=== PATIENT | female | born 1995 | race Caucasian/White ===

== ENCOUNTER → 2022-05-16 14:39 | Outpatient (CLI) | payer OTHER, SELFPAY ==
[2022-05-16 15:14] LABS: Appearance Urine UA CLOUDY; Bilirubin Urine UA NEGATIVE (NEGATIVE); Color Urine UA YELLOW; Glucose Urine UA NEGATIVE (Negative); Ketones Urine UA NEGATIVE (NEGATIVE); Leukocyte Esterase Urine UA NEGATIVE (NEGATIVE); Nitrite Urine UA NEGATIVE (Negative); Occult Blood Urine UA NEGATIVE (Negative); Protein Urine UA NEGATIVE (Negative); Urobilinogen Urine UA 0.2 E.U./dL (0.2)
[2022-05-16 15:16] LABS: pH Urine UA 7.5 (4.5-8.0)
== END ==
PROVIDERS: Visit Provider Family Medicine
DX: Z34.01 Encounter for supervision of normal first pregnancy, first trimester (principal)
CPT/HCPCS: 81003; 87086

== ENCOUNTER → 2022-05-19 12:03 | Outpatient (CLI) | payer OTHER, SELFPAY ==
[2022-05-19 12:34] LABS: Add Manual Diff / Slide Review NO; Basophils Absolute Auto 0 /uL (0-100); Basophils Percent Auto 0.5 % (0-2); Eosinophils Absolute Auto 0 /uL (0-450); Eosinophils Percent Auto 0.5 % (2-4); Hemoglobin 13.5 g/dL (12.0-16.0); Lymphocytes Absolute Auto 1500 /uL (1100-4500); Lymphocytes Percent Auto 16.3 % (25-40); Mean Corpuscular HGB Conc 34.7 % (30-36); Mean Corpuscular Volume 92.2 fL (80-100); Monocytes Absolute Auto 600 /uL (0-900); Monocytes Percent Auto 6.2 % (3-14); Neutrophils Absolute Auto 7200 /uL (1500-7000); Neutrophils Percent Auto 76.5 % (50-75); Platelet Count 311 X10^3/uL (150-400); Red Blood Cell Count 4.23 X10^6/uL (4.0-5.2); Red Cell Distribution Width 13.1 % (11.6-14.8); White Blood Cell Count 9.5 X10^3/uL (4.5-11.0)
[2022-05-20 11:27] LABS: RPR Screen Non Reactive (Non Reactive)
[2022-05-20 12:08] LABS: Varicella IgG Antibody 571 index (Immune >165)
[2022-05-21 14:05] LABS: Hepatitis B Surface Antigen NEGATIVE s/c (NEGATIVE); Rubella Antibody IgG 12.9 IU/mL (>15)
[2022-05-21 14:25] LABS: HIV 1 & 2 Ab/Ag 4th Gen Combo NEGATIVE (NEGATIVE); Hep C Virus Ab w/Reflex Quant NEGATIVE s/c (NEGATIVE)
== END ==
PROVIDERS: Referring Provider Family Medicine; Visit Provider Family Medicine
DX: Z34.01 Encounter for supervision of normal first pregnancy, first trimester (principal)
CPT/HCPCS: 36415; 80055; 86787; 86803; 86850; 86900; 86901; 87086; 87389

== ENCOUNTER → 2022-05-24 11:11 | Outpatient (CLI) | payer OTHER, SELFPAY ==
[2022-05-24 12:19] LABS: Appearance Urine UA SL CLOUDY; Bilirubin Urine UA NEGATIVE (NEGATIVE); Color Urine UA YELLOW; Glucose Urine UA NEGATIVE (Negative); Ketones Urine UA NEGATIVE (NEGATIVE); Leukocyte Esterase Urine UA NEGATIVE (NEGATIVE); Nitrite Urine UA NEGATIVE (Negative); Occult Blood Urine UA NEGATIVE (Negative); Protein Urine UA NEGATIVE (Negative); Urobilinogen Urine UA 0.2 E.U./dL (0.2)
[2022-05-24 12:24] LABS: Amorphous Sediment Urine 1+; Bacteria Urine None Seen; Culture Indicated Urine Cult Not Indicated; RBC Urine None Seen (0-5/HPF); WBC Urine None Seen (0-5/HPF)
== END ==
PROVIDERS: Referring Provider Family Medicine; Visit Provider Family Medicine
DX: R30.0 Dysuria (principal)
CPT/HCPCS: 81001

== ENCOUNTER → 2022-07-24 11:25 | Outpatient (CLI) | payer OTHER, SELFPAY ==
[2022-07-26 20:07] LABS: AFP, Serum 49.5 ng/mL (.); Calc Gestational Age EDD (.); Estriol, Free 0.68 ng/mL (.); Inhibin A, Dimeric 256.81 pg/mL (.); Inhibin A, MoM 1.51 (.); Maternal Ethnicity Caucasian (.); Maternal Weight 128 lbs (.); Number of Fetuses No (.); OSBR Risk 1 IN 6110 (.); Results Report (.); Test Results *Screen Negative* (.); hCG, MoM 1.51 (.); hCG, Serum 65342 mIU/mL (.)
== END ==
PROVIDERS: Referring Provider Family Medicine; Visit Provider Family Medicine
DX: Z34.02 Encounter for supervision of normal first pregnancy, second trimester (principal); Z3A.16 16 weeks gestation of pregnancy
CPT/HCPCS: 36415; 82105; 82677; 84702; 86336

== ENCOUNTER → 2022-08-21 14:49 | Outpatient (CLI) | payer OTHER, SELFPAY ==
--- NOTE | 2022-08-21 14:50 | DI.US.S_ITS ---
PROCEDURE: US OB >= 14 WEEKS FETUS INDICATIONS: ANATOMY OUTSIDE/PRIOR DATING DATA: Last menstrual period (LMP): 03/29/2022. LMP-based estimated date of delivery (JAYDA): 01/02/2023. First dating scan (date and location): 05/16/2022. Estimated date of delivery (JAYDA) from first dating scan: 01/05/2023. TECHNIQUE: Real-time scanning was performed of the fetus, with image documentation and biometric measurements. Endovaginal scanning: Not performed COMPARISON: None. FINDINGS: General: A single living intrauterine gestation is present. Presentation: Vertex. Placenta: Placental position is right posterior , without previa. Amniotic fluid index: 15.2 cm, normal range is 5-24 cm. Single deepest vertical pocket is 4.9 cm. heart rate: 152 beats per minute. Maternal cervical canal: 3.5 cm long. Normal lower limit is 2.5 cm. biometrics: Biparietal diameter: 4.9 cm 20 weeks 5 days Head circumference: 17.1 cm 19 weeks 5 days Abdominal circumference: 15.3 cm 20 weeks 4 days Femur length: 3.3 cm 19 weeks 1 day estimated gestational age: 20 weeks 3 days Composite gestational age from present scan: 20 weeks 2 days Estimated weight and percentile: 347 g, 40th percentile Anatomic survey: Neuro: Ventricles are non-dilated at less than 10 mm. Cisterna magna is normal at 3-11 mm. Cerebellum is normal in size and morphology. Nuchal skin fold: Normal at less than 6 mm between 14-21 weeks gestational age. Face: Nose and lips, facial profile are normal. Spine: No evidence for spina bifida. Heart: 4-chambered heart is present, with normal ventricular outflow tracts. Diaphragm: Diaphragm is intact. Stomach: Left-sided stomach is present. Kidneys: Left pelviectasis, AP renal pelvis diameter 4 mm. No right pelviectasis identified. Cord: 3-vessel cord has orthotopic insertion. Bladder: Normal in size. Extremities: All 4 extremities identified. IMPRESSION: 1. Single living intrauterine . 2. Left pelviectasis. Follow-up third-trimester ultrasound at approximately 32 weeks is recommended. 3. The remainder of the 2nd trimester anatomy survey is within normal limits. We strive to produce accurate, complete, and clear reports of imaging services. To assist us in improving patient care, this report was composed using standard report templates and voice recognition software. Therefore, it may contain abnormal punctuation, insertions and/or omissions. Occasional wrong-word or sound-alike substitutions may occur. Though we review the report and make efforts to correct it, we do recommend that the report be read carefully in proper context to recognize any text inaccuracies. Dictated by: Justino Gilman M.D. on 08/22/2022 at 9:09 Approved by: Justino Gilman M.D. on 08/22/2022 at 9:21
== END ==
PROVIDERS: Referring Provider Family Medicine; Visit Provider Family Medicine
DX: Z34.02 Encounter for supervision of normal first pregnancy, second trimester (principal); Z3A.20 20 weeks gestation of pregnancy
CPT/HCPCS: 76811

== ENCOUNTER → 2022-10-02 09:22 | Outpatient (CLI) | payer OTHER, SELFPAY ==
[2022-10-02 11:55] LABS: Add Manual Diff / Slide Review NO; Basophils Absolute Auto 100 /uL (0-100); Basophils Percent Auto 0.5 % (0-2); Eosinophils Absolute Auto 200 /uL (0-450); Hematocrit 32.2 % (36-46); Lymphocytes Absolute Auto 1600 /uL (1100-4500); Lymphocytes Percent Auto 13.2 % (25-40); Mean Corpuscular HGB Conc 34.2 % (30-36); Mean Corpuscular Hemoglobin 32.1 PG (26-34); Mean Corpuscular Volume 93.8 fL (80-100); Monocytes Absolute Auto 600 /uL (0-900); Monocytes Percent Auto 5.1 % (3-14); Neutrophils Absolute Auto 9400 /uL (1500-7000); Neutrophils Percent Auto 79.2 % (50-75); Platelet Count 218 X10^3/uL (150-400); Red Blood Cell Count 3.43 X10^6/uL (4.0-5.2); White Blood Cell Count 11.9 X10^3/uL (4.5-11.0)
[2022-10-02 13:08] LABS: GTT (PREG) 1 Hour PP 50gm Dose 144 mg/dL (76-139)
== END ==
PROVIDERS: Referring Provider Family Medicine; Visit Provider Family Medicine
DX: Z34.02 Encounter for supervision of normal first pregnancy, second trimester (principal); Z3A.26 26 weeks gestation of pregnancy
CPT/HCPCS: 36415; 82950; 85025

== ENCOUNTER → 2022-10-18 08:00 | Outpatient (CLI) | payer OTHER, SELFPAY ==
[2022-10-18 10:37] LABS: Glucose 1 Hour Gest 155 mg/dL (76-180)
[2022-10-18 11:37] LABS: Glucose Tol Interp,Gestational INTERPRETATION
[2022-10-18 11:38] LABS: Glucose 2 Hour Gest 187 mg/dL (76-155)
[2022-10-18 13:02] LABS: Glucose 3 Hour Gest 119 mg/dL (76-140)
[2022-10-18 16:30] LABS: Glucose Fasting Gestational 82 mg/dL (76-95)
== END ==
PROVIDERS: Referring Provider Family Medicine; Visit Provider Family Medicine
DX: Z34.01 Encounter for supervision of normal first pregnancy, first trimester (principal); R73.9 Hyperglycemia, unspecified
CPT/HCPCS: 36415; 82951; 82952

== ENCOUNTER → 2022-11-22 08:45 | Outpatient (CLI) | payer OTHER, SELFPAY ==
--- NOTE | 2022-11-22 08:45 | DI.US.S_ITS ---
PROCEDURE: US OB FOLLOW UP INDICATIONS: FOLLOW UP LEFT KIDNEY OUTSIDE/PRIOR DATING DATA: Last menstrual period (LMP): 03/29/2022. LMP-based estimated date of delivery (JAYDA): 01/02/2023. First dating scan (date and location): 05/17/2023. Estimated date of delivery (JAYDA) from first dating scan: 01/05/2023. The calculations are made using the sonographic JAYDA of 01/05/2023. TECHNIQUE: Real-time scanning was performed of the fetus, with image documentation. Endovaginal scanning: Mild performed COMPARISON: [facility], US, US OB >= 14 WEEKS FETUS, 08/21/2022, 15:10. FINDINGS: A single living intrauterine gestation is present. Presentation: Vertex. Placenta: Placental position is posterior right, without previa. There is hypoechoic, nonmobile, avascular signal deep to the placenta. The placenta edge appears firmly adhere to the uterus wall. Amniotic fluid index: 11.8 cm, normal range is 5-24 cm. Single deepest vertical pocket is 4.4 cm. heart rate: 122 beats per minute. Maternal cervical canal: 4.2 cm long. Normal lower limit is 2.5 cm. Other: The left renal pelvis measures 4.4 millimeters, previously 4.2 millimeters. IMPRESSION: Similar borderline pelvocaliectasis of the left kidney, with the left renal pelvis measuring 4.4 millimeters, unchanged from prior. A vascular, hypoechoic signal deep to the placenta. The placenta edge is firmly adhered to the uterus. In the absence of symptoms, findings likely represent a placental [place]. Placental abruption is significantly less likely in the absence of recent trauma, bleeding or abnormal amniotic fluid. Dictated by: Dm Mack M.D. on 11/22/2022 at 10:10 Approved by: Dm Mack M.D. on 11/22/2022 at 10:13
== END ==
PROVIDERS: Referring Provider Family Medicine; Visit Provider Family Medicine
DX: O35.EXX0 Maternal care for other (suspected) fetal abnormality and damage, fetal genitourinary anomalies, not applicable or unspecified (principal); Z3A.34 34 weeks gestation of pregnancy
CPT/HCPCS: 76816

== ENCOUNTER → 2022-12-11 12:24 | Outpatient (CLI) | payer OTHER, SELFPAY ==
[2022-12-12 13:14] LABS: Strep Grp B PCR NEG for Grp B Strep
== END ==
PROVIDERS: Visit Provider Family Medicine
DX: Z34.01 Encounter for supervision of normal first pregnancy, first trimester (principal)
CPT/HCPCS: 87653

== ENCOUNTER → 2022-12-18 08:10 | Outpatient (CLI) | payer OTHER, SELFPAY ==
--- NOTE | 2022-12-18 08:11 | DI.US.S_ITS ---
PROCEDURE: US OB LIMITED INDICATIONS: f/u kidney OUTSIDE/PRIOR DATING DATA: Last menstrual period (LMP): 03/29/2022 LMP-based estimated date of delivery (JAYDA): 01/02/2023 First dating scan (date and location): 05/16/2022 Estimated date of delivery (JAYDA) from first dating scan: 01/05/2023 The calculations are made using the ultrasound JAYDA of 01/05/2023 TECHNIQUE: Real-time scanning was performed of the fetus, with image documentation. Endovaginal scanning: Not performed. COMPARISON: [facility], US, OB FOLLOW UP, 11/22/2022, 9:04. FINDINGS: General: A single living intrauterine gestation is present. Presentation: Vertex Placenta: Placental position is posterior right, without previa. Amniotic fluid index: 11.1 cm, normal range is 5-24 cm. Single deepest vertical pocket is 3.9 cm. heart rate: 157 beats per minute. Maternal cervical canal: Not well visualized. Clinically estimated gestational age: 37 weeks 3 days Other: Left renal pelvis measures 6 mm in AP diameter and right renal pelvis measures 4 mm in AP diameter, which is within normal limits for gestational age. Stable heterogeneously hypoechoic avascular area along the deep margin of the placenta. IMPRESSION: 1. Single live intrauterine . 2. Left renal pelvis measures 6 mm and right renal pelvis measures 4 mm, which is within normal limits for gestational age. 3. Hypoechoic avascular area along the deep margin of the placenta does not appear significantly changed when compared to the prior ultrasound. We strive to produce accurate, complete, and clear reports of imaging services. To assist us in improving patient care, this report was composed using standard report templates and voice recognition software. Therefore, it may contain abnormal punctuation, insertions and/or omissions. Occasional wrong-word or sound-alike substitutions may occur. Though we review the report and make efforts to correct it, we do recommend that the report be read carefully in proper context to recognize any text inaccuracies. Approved by: Justino Rodriguez M.D. on 12/18/2022 at 14:18
== END ==
PROVIDERS: Referring Provider Family Medicine; Visit Provider Family Medicine
DX: Z34.01 Encounter for supervision of normal first pregnancy, first trimester (principal)
CPT/HCPCS: 76815

== ENCOUNTER 2022-12-26 01:25 | Inpatient (IN) | payer OTHER, SELFPAY ==
[2022-12-26 02:50] VITALS: BP 127/72
[2022-12-26 02:52] LABS: Add Manual Diff / Slide Review NO; Basophils Absolute Auto 100 /uL (0-100); Basophils Percent Auto 0.5 % (0-2); Eosinophils Absolute Auto 300 /uL (0-450); Eosinophils Percent Auto 1.8 % (2-4); Hematocrit 37.6 % (36-46); Hemoglobin 12.7 g/dL (12.0-16.0); Lymphocytes Absolute Auto 2300 /uL (1100-4500); Lymphocytes Percent Auto 14.8 % (25-40); Mean Corpuscular HGB Conc 33.9 % (30-36); Mean Corpuscular Hemoglobin 31.6 PG (26-34); Mean Corpuscular Volume 93.4 fL (80-100); Monocytes Absolute Auto 1000 /uL (0-900); Monocytes Percent Auto 6.4 % (3-14); Neutrophils Absolute Auto 12000 /uL (1500-7000); Neutrophils Percent Auto 76.5 % (50-75); Platelet Count 231 X10^3/uL (150-400); Red Blood Cell Count 4.02 X10^6/uL (4.0-5.2); Red Cell Distribution Width 13.5 % (11.6-14.8); White Blood Cell Count 15.7 X10^3/uL (4.5-11.0)
--- NOTE | 2022-12-26 03:48 | P.HPOB_ITS ---
OB HPI Date/Time Date of admission: 12/26/22 Date Patient Seen: 12/26/22 Time Patient Seen: 03:49 History of Present Condition Chief complaint: labor JYADA Calculator 2 Estimated Delivery Date Method Current WG Current Estimate 01/05/23 Ultrasound #1 38w 4d Other Estimates 01/02/23 LMP (Certain) 39w 0d Estimated Gestational Age (weeks): 38w4d : 1 Para: 0 Narrative: Pt is a 27yo at 38w4d here with regular contractions. Pt reports contractions starting after her appt yesterday, increasing in frequency and intensity significantly around 10pm. She denies any vaginal bleeding or LOF. She is feeling her baby move regularly. Her was complicated anxiety and depression, stable on Zoloft, and borderline left pelvocaliectasis which resolved prior to delivery. Due to a hx of congenital heart defect that self- resolved (uncertain of details), the pt had a echo that was reassuring. care: good care, initiated at week # (6) and pounds weight gain (34) Dating criteria OB: based on 1st trimester US only Ultrasounds: normal 1st trimester US and abnormal US findings Abnormal ultrasound findings: borderline left pelvocaliectasis Obstetrical complications: none Medical complications OB: psychiatric Preadmission Labs Last OB Lab Results: 2 Blood Type O Positive 12/26/22 02:10 Antibody Screen Negative 12/26/22 02:10 Hematocrit 37.6 % (36-46) 12/26/22 02:10 Hemoglobin 12.7 g/dL (12.0-16.0) 12/26/22 02:10 Hepatitis B Surface Antigen Negative s/c (NEGATIVE) 05/19/22 12 :11 Hepatitis C Antibody Negative s/c (NEGATIVE) 05/19/22 12:11 Rubella Antibody 12.9 IU/mL (>15) L 05/19/22 12:11 Varicella-Zoster IgG Antibody 571 index (Immune >165) 05/19/22 12:11 Glucose 1 Hour 144 mg/dL (76-139) H 10/02/22 10:40 Group B Streptococcus (PCR) Neg for grp b strep 12/11/22 12:24 Glucose Tolerance Testing: Fasting (82), 1 hr (155), 2 hr (187) and 3 hr (119) -: Urine: positive (Lactobacillus) Genetic Screens: Quad screen: Normal External Labs -: Urine: positive (Lactobacillus) Evaluation Evaluation Baseline heart rate: 130 Variability: Moderate (11-25) monitor accelerations: Present Monitor Decelerations: Absent Contraction Frequency (minutes): 3 Dilation (cm): 9 Effacement (%): 90 station: 0 Position of cervix: mid Consistency: soft PFSH Medical History (Updated 05/08/22 @ 08:37 by Paula Smallwood, RN) GI bleeding Normal colonoscopy Anorexia nervosa Anxiety Depression Congenital heart defect History of abnormal cervical Pap smear Surgical History (Updated 05/08/22 @ 08:37 by Paula Smallwood, RN) History of colposcopy with cervical biopsy (~2018) [place] teeth extracted History of removal of skin mole Family History (Updated 05/08/22 @ 08:42 by Paula Smallwood RN) Father Ulcerative colitis History of partial colectomy Skin cancer Family/Other Crohn's disease Grandmother Ovarian cancer Family/Other Apert syndrome Grandfather Hypertension Grandmother Skin cancer Breast cancer Grandfather Skin cancer Family/Other Breast cancer Grandfather Dementia Social History marital status: number of children: 0 household members: spouse lives independently: Yes caregiver/support person: No housing: house pets and animals: Yes (3 dogs, fish; aware of precautions) education level: college (some college) 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) current occupational exposures/hazards: Yes (discussed precautions w/ animal feces and cleaning chemicals) special chester needs: No travel history: recent (domestic only) seatbelt use: always water heater temp set < 120 deg: No (will adjust) working smoke detector in home: Yes fire extinguisher in home: Yes carbon monox detector in home: Yes firearms in home: Yes firearms unloaded and locked: Yes do you feel safe at home: Yes Smoking Status: Never smoker second hand exposure: No alcohol intake: former (rarely when not ) substance use type: marijuana (will not use when /) during the past year weight has: remained stable well-balanced diet: about half the time daily servings fruits/ve-4 caffeine: Yes Type(s) of exercise: walking (10+ miles/day) frequency: daily Meds Home Medications and Allergies Home Medications Medication Instructions Recorded Confirmed Type magnesium 250 mg tablet 250 mg PO DAILY 05/08/22 12/25/22 History prenat.vits,pete,bne-ocsp-jqqkm 1 tab PO DAILY 05/08/22 12/25/22 History sertraline 100 mg tablet (Zoloft) 100 mg PO DAILY 05/08/22 12/25/22 History Allergies Allergy/AdvReac Type Severity Reaction Status Date / Time No Known Drug Allergies Allergy Unverified 12/25/22 11:33 OB Exam Resp Effort & Inspection: normal respiratory effort Auscultation: clear to auscultation bilaterally Cardio Rate: regular rate Rhythm: regular rhythm Heart Sounds: S1 normal, S2 normal and no murmurs GI Inspection: non-distended Palpation: Yes soft and No tender Presentation: vertex Objective Labs 12/26/22 02:10 Labs: Laboratory Results - last 24 hr 12/26/22 02:10 WBC 15.7 H RBC 4.02 Hgb 12.7 Hct 37.6 MCV 93.4 MCH 31.6 MCHC 33.9 RDW 13.5 Plt Count 231 Neut % (Auto) 76.5 H Lymph % (Auto) 14.8 L [place] % (Auto) 6.4 Eos % (Auto) 1.8 L Baso % (Auto) 0.5 Neut # (Auto) 73366 H Lymph # (Auto) 2300 [place] # (Auto) 1000 H Eos # (Auto) 300 Baso # (Auto) 100 Blood Type O Positive Antibody Screen Negative Assessment and Plan Assessment and Plan Assessment and Plan narrative: 27yo at 38w4d here in active labor. GBS negative, Rh positive. After informed consent, AROM performed with clear fluid present. - Expectant management, anticipate - FHT reassuring - GBS negative, no prophylaxis indicated - Epidural in place for pain control
--- NOTE | 2022-12-26 03:54 | PM.AN.REGBLK ---
Regional Block Pre-procedure Procedure: Continuous Lumbar Epidural for L&D Attending OB provider: Yesica Hatch PMH/ROS narrative: 27F at 38w3d in labor for epidural. Hx congenital heart defect hole in heart that closed spontaneously, anxiety/depression and anorexia, asthma. Hx: No personal or family history of anesthesia problems. PSH/Anesthesia history narrative: Colposcopy, colonoscopy Exam narrative: See pre-anesthesia evaluation ASA Class: II Labs: Hct 37.6 % (36-46) 12/26/22 02:10 Plt Count 231 X10^3/uL (150-400) 12/26/22 02:10 Medications: Current Medications Generic Name Dose Route Start Last Admin Trade Name Freq PRN Reason Stop Dose Admin Calcium Carbonate 1,000 mg 12/26/22 02:07 Calcium Carbonate 500 Mg Tab PO Q4HR PRN Dyspepsia Carboprost Tromethamine 250 mcg 12/26/22 02:07 Carboprost 250 Mcg/Ml Ampul IM Q90M PRN Bleeding Fentanyl 50 mcg 12/26/22 02:07 Fentanyl 100 Mcg/2 Ml Inj IV Q1H PRN Pain, Moderate (4-6) Oxytocin/Lactated Ringer's 30 unit in 500 mls @ 200 mls/hr 12/26/22 02:07 Oxytocin Premix IV CONT PRN Bleeding Protocol Tranexamic Acid 1,000 mg/ 100 mls @ 200 mls/hr 12/26/22 02:07 Sodium Chloride IV NOW PRN Bleeding Lactated Ringer's 1,000 mls @ 100 mls/hr 12/26/22 02:15 Lactated Ringers IV CONT WES Lidocaine HCl 20 ml 12/26/22 02:07 Lidocaine 1% 20 Ml INJ INTRA-OP PRN Post Delivery Methylergonovine Maleate 0.2 mg 12/26/22 02:07 Methylergonovine 0.2 Mg Tablet PO Q6HR PRN Heavy Bleeding Methylergonovine Maleate 0.2 mg 12/26/22 02:07 Methylergonovine 0.2 Mg/Ml Vial IM NOW PRN Bleeding Misoprostol 800 mcg 12/26/22 02:07 Misoprostol 200 Mcg Tablet PA NOW PRN Bleeding Misoprostol 400 mcg 12/26/22 02:07 Misoprostol 200 Mcg Tablet SL NOW PRN Bleeding Naloxone HCl 0.2 mg 12/26/22 02:07 Naloxone 0.4 Mg/Ml Vial IV Q2MIN PRN Opiate Reversal Ondansetron HCl 4 mg 12/26/22 02:07 Ondansetron 4 Mg/2 Ml Inj IV Q4HR PRN Nausea And Vomiting Oxytocin 10 unit 12/26/22 02:07 Oxytocin 10 Unit/Ml Vial IM NOW PRN Bleeding Allergies: Allergies Allergy/AdvReac Type Severity Reaction Status Date / Time No Known Drug Allergies Allergy Unverified 12/25/22 11:33 Procedure Insertion date: 12/26/22 Insertion time: 03:21 Prep/Local: 1% lidocaine (Chlorhexidine) Interspace: L2-3 Patient position: sitting Needle: 17 gauge Tuohy Loss of resistance with: saline JORGE LUIS at (cm): 5 Catheter placed at SKIN (cm): 9 Catheter in SPACE (cm): 4 Insertion: No CSF, No Blood, No Paresthesia with insertion, No Paresthesia with injection and No Test dose reaction Initial Medications TEST DOSE time: 03:22 BOLUS DOSE time: 03:24 BOLUS DOSE (mL): 2 BOLUS DOSE med: other Infusion Initial rate (mL/hr): 10 Subsequent interventions: Repeat time-out prior to procedure about 03:16, local at 03:18. One attempt, L2-3, easy placement. Pt very stoic and tolerated procedure well. Post-procedure Anesthesia time START: 03:03 Anesthesia time END: 03:50 Post-procedure Anesthesia Assessment: Yes CV function: HR/BP stable, Yes Resp function: RR/sat/airway adequate, Yes Post-op hydration adequate, Yes Pain control adequate, Yes Nausea & vomiting absent, Yes Temperature > 36 C, Yes Mental status appropriate and Yes Anesthesia complications (None)
[2022-12-26] MEDS: FENT 2MCG/ML BUPIV 0.1% EPI 200 MCG/100 ML PLAST..BAG 6 MCG EPIDURAL (07:42)
[2022-12-26] MEDS: OXYTOCIN PREMIX 30 UNIT/500 ML PLAST..BAG 200 UNIT IV (09:18)
[2022-12-26] MEDS: TRANEXAMIC ACID 1,000 MG in SODIUM CHLORIDE 0.9% 100 ML 200 MG IV (09:41)
[2022-12-26] MEDS: miSOPROStoL 200 MCG TABLET 800 MCG PR (09:42)
--- NOTE | 2022-12-26 10:34 | P.PCNOB_ITS ---
Labor & Delivery Delivery date: 12/26/22 Intrapartal Events: None Cervical ripening method: none Induction method: none Delivery augmentation: rupture of membranes Delivery monitor: external FHT and external uterine Route of delivery: Episiotomy description: None L&D Laceration Description: Perineal - 2nd Degree Quantitative Blood Loss: 1,100 Anesthesia Type: Epidural Complications: hemorrhage Narrative: PROCEDURE: at 38w4d presented in active labor and was admitted to Labor and Delivery. The patient progressed through the 1st stage over 9 hours. ROM occured at 3:45 with clear fluid. Pain was controlled with an epidural. The patient progressed through the 2nd stage over 1 hours and delivered a viable female infant with APGARs 7/8 at 9:09 via . The cord was cut and clamped after it stopped pulsating. The placenta delivered with gentle cord traction, and appeared complete. The perineum and vagina were inspected with 2nd degree perineal laceration repaired with 2-O Vicryl. Heavier bleeding was noted after delivery. Bimanual exam produced two large clots. The pt received the usual pitocin in addition to TXA and cytotec, and her bleeding improved to normal volume. Needle and sponge counts were correct.? The vagina was inspected and no items were left in situ. Augusta was doing well with her and her , Moiz, at bedside. PREPROCEDURE DIAGNOSIS: Intrauterine at 38w4d Anxiety and depression GBS negative RH positive POSTPROCEDURE DIAGNOSIS: Intrauterine at 38w4d, delivered Same as preprocedure [place] Baby 1: gender: Female Presentation: vertex Position: Left Occiput Anterior Placenta delivery description: Spontaneous Cord Vessel Description: 3 Vessels score (1 min): 7 score (5 min): 8 weight: 6 lb 11.903 oz Plan for aftercare: Routine care
[2022-12-26] MEDS: IBUPROFEN 600 MG TABLET PO (13:29)
[2022-12-26] MEDS: ACETAMINOPHEN 325 MG TABLET 650 MG PO (13:29)
[2022-12-26 15:00] VITALS: BP 115/71; PULSE 85; RESP 16; TEMP 36.6
[2022-12-27] MEDS: IBUPROFEN 600 MG TABLET PO ×2 (04:03→10:21)
[2022-12-27] MEDS: ACETAMINOPHEN 325 MG TABLET 650 MG PO ×2 (04:03→10:20)
[2022-12-27 06:18] LABS: Add Manual Diff / Slide Review NO; Basophils Absolute Auto 100 /uL (0-100); Basophils Percent Auto 0.9 % (0-2); Eosinophils Absolute Auto 200 /uL (0-450); Eosinophils Percent Auto 1.8 % (2-4); Hematocrit 27.6 % (36-46); Hemoglobin 9.4 g/dL (12.0-16.0); Lymphocytes Absolute Auto 2100 /uL (1100-4500); Lymphocytes Percent Auto 17.6 % (25-40); Mean Corpuscular HGB Conc 34.2 % (30-36); Mean Corpuscular Hemoglobin 31.6 PG (26-34); Mean Corpuscular Volume 92.5 fL (80-100); Monocytes Absolute Auto 700 /uL (0-900); Monocytes Percent Auto 5.7 % (3-14); Neutrophils Absolute Auto 8900 /uL (1500-7000); Platelet Count 190 X10^3/uL (150-400); Red Blood Cell Count 2.99 X10^6/uL (4.0-5.2); Red Cell Distribution Width 13.8 % (11.6-14.8); White Blood Cell Count 12.1 X10^3/uL (4.5-11.0)
[2022-12-27] MEDS: PRENATAL VIT,CALC/IRON/FOLIC 1 TABLET 1 TAB PO (08:57)
[2022-12-27] MEDS: SERTRALINE 50 MG TABLET 100 MG PO (08:58)
[2022-12-27] MEDS: DOCUSATE 100 MG CAPSULE PO (09:03)
[2022-12-27] MEDS: FERROUS SULFATE 325 MG TABLET PO (09:03)
--- NOTE | 2022-12-27 10:02 | P.DS_ITS ---
Discharge Providers Provider Date of admission: 12/26/22 01:25 Discharge Date: 12/27/22 Primary care physician: Lashell MARQUES Provider Consults: 12/26/22 02:07 Consult to Anesthesiology Urgent Comment: Consulting Provider: Anesthesiologist Reason for consultation: Epidural 12/27/22 10:31 Consult to Continuous Mining Machine Operator Routine Comment: Discharge provider: Yesica Hatch MD Summary Hospital Course Date Patient Seen: 12/27/22 Diagnoses: Intrauterine at 38w4d Anxiety and depression GBS negative RH positive Spontaneous vaginal delivery hemorrhage Hospital Course: The pt presented in active labor. She had an epidural for pain control. AROM was performed with clear fluid present. She progressed to complete and had an of a viable baby girl on 12/26/22. A 2nd degree perineal laceration was then repaired. The pt had heavier vaginal bleeding due to uterine atony, which was controlled with TCA, pitocin, and cytotec. , there were no additional complications. At the time of discharge she was voiding, ambulating, and passing flatus without difficulty. Her lochia was decreasing appropriately. Her pain was well controlled. She was with good latch with the nipple shield. She will f/u in 6 weeks for check. She is undecided regarding contraception but does not desire hormones. Peripartum Data Delivery Method: Natural Vaginal Laceration Description: Perineal - 2nd Degree Procedures: Spontaneous vaginal delivery complications: none 1: Gender: Female Disposition of : home Discharge Diagnosis (1) Spontaneous vaginal delivery: Status: Acute Status at Discharge Cognitive/behavioral status at discharge: oriented Functional status at discharge: independent ambulation Overall status at discharge: patient is progressing back to baseline Time Spent with Patient Time attestation: Total time spent providing and/or coordinating discharge services: Objective Labs 12/27/22 06:00 Labs: Laboratory Results - last 24 hr 12/27/22 06:00 WBC 12.1 H RBC 2.99 L Hgb 9.4 L Hct 27.6 L MCV 92.5 MCH 31.6 MCHC 34.2 RDW 13.8 Plt Count 190 Neut % (Auto) 74.0 Lymph % (Auto) 17.6 L [place] % (Auto) 5.7 Eos % (Auto) 1.8 L Baso % (Auto) 0.9 Neut # (Auto) 8900 H Lymph # (Auto) 2100 [place] # (Auto) 700 Eos # (Auto) 200 Baso # (Auto) 100 Exam Narrative Exam Narrative: Gen: NAD, sitting comfortably in bed, appears well CV: RRR, no murmurs Resp: clear to auscultation bilaterally Abd: soft, appropriately tender, fundus firm and below the umbilicus, nondistended Ext: no edema Discharge Plan Discharge Plan Patient Disposition: Home Discharge orders & Medications Prescriptions: New acetaminophen 325 mg Tablet 650 mg PO Q6HR PRN (Reason: Pain, Mild (1-3)) Qty: 30 0RF ferrous sulfate 325 mg (65 mg iron) Tablet 325 mg PO DAILY Qty: 30 0RF docusate sodium 100 mg Capsule 100 mg PO DAILY Qty: 30 0RF ibuprofen 600 mg Tablet 600 mg PO Q6HR PRN (Reason: Pain, Mild (1-3)) Qty: 30 0RF Continued prenat.vits,pete,wgg-gnjs-qwbab Tablet 1 tab PO DAILY sertraline [Zoloft] 100 mg tablet 100 mg PO DAILY magnesium 250 mg tablet 250 mg PO DAILY Follow up/Referrals: ProviderLashell [Primary Care Provider] - Yesica Hatch MD [Physician] - 6 Weeks (Appointment with on Tuesday, February 06 at 10:00 AM) Diet/Activity/Treatments Diet: Diet as Tolerated and Regular Skin/Wound/Dressing Care Report to your healthcare provider any signs of infection, such as:: chills, fever, increased pain and unusual drainage Visit Report/Discharge Packet Instructions: DI for Labor and Delivery, Vaginal Stand Alone Forms: Patient Portal/API, Stroke Signs & Symptoms Discharge Data Primary Care Provider: ProviderLashell Discharges patient from system. Discharge Date/Time: 12/27/22 12:26
== END 2022-12-27 12:26 | disposition home or self-care (01) | DRG 807 ==
PROVIDERS: Family Medicine; Admitting Provider Student in an Organized Health Care Education/Training Program; Referring Provider Student in an Organized Health Care Education/Training Program; Visit Provider Student in an Organized Health Care Education/Training Program
DX: O99.344 Other mental disorders complicating childbirth (principal); Z37.0 Single live birth; F41.9 Anxiety disorder, unspecified; F32.A Depression, unspecified; O70.1 Second degree perineal laceration during delivery; Z3A.38 38 weeks gestation of pregnancy; Z67.40 Type O blood, Rh positive
CPT/HCPCS: 36415; 59050; 59400; 85025; 86850; 86900; 86901; G0379; J2590; S0191

== ENCOUNTER → 2023-01-11 11:04 | Outpatient (CLI) | payer OTHER, SELFPAY ==
[2023-01-11 12:26] LABS: Add Manual Diff / Slide Review NO; Basophils Absolute Auto 100 /uL (0-100); Basophils Percent Auto 1.8 % (0-2); Eosinophils Absolute Auto 300 /uL (0-450); Eosinophils Percent Auto 3.9 % (2-4); Hemoglobin 12.7 g/dL (12.0-16.0); Lymphocytes Absolute Auto 2200 /uL (1100-4500); Lymphocytes Percent Auto 33.9 % (25-40); Mean Corpuscular HGB Conc 34.4 % (30-36); Mean Corpuscular Hemoglobin 31.6 PG (26-34); Mean Corpuscular Volume 91.8 fL (80-100); Monocytes Absolute Auto 400 /uL (0-900); Monocytes Percent Auto 6.1 % (3-14); Neutrophils Absolute Auto 3600 /uL (1500-7000); Neutrophils Percent Auto 54.3 % (50-75); Platelet Count 408 X10^3/uL (150-400); Red Blood Cell Count 4.04 X10^6/uL (4.0-5.2); Red Cell Distribution Width 12.8 % (11.6-14.8); White Blood Cell Count 6.5 X10^3/uL (4.5-11.0)
[2023-01-11 12:48] LABS: Free T3, Triiodothyronine Free 3.31 pg/mL (2.77-5.27)
[2023-01-11 13:01] LABS: Thyroid Stimulating Hormone 2.38 uIU/mL (0.47-4.68)
== END ==
PROVIDERS: Referring Provider Family Medicine; Visit Provider Family Medicine
DX: O92.4 Hypogalactia (principal); D64.9 Anemia, unspecified
CPT/HCPCS: 36415; 84439; 84443; 84481; 85025

== ENCOUNTER → 2023-10-08 12:05 | Outpatient (CLI) | payer OTHER, SELFPAY ==
[2023-10-08 13:33] LABS: HCG Quantitative /Beta subunit < 2.39 mIU/mL
== END ==
PROVIDERS: Referring Provider Family Medicine; Visit Provider Family Medicine
DX: O03.9 Complete or unspecified spontaneous abortion without complication (principal)
CPT/HCPCS: 36415; 84702

== ENCOUNTER → 2024-01-23 09:56 | Outpatient (CLI) | payer OTHER, SELFPAY ==
[2024-01-23 10:20] LABS: Add Manual Diff / Slide Review NO; Basophils Absolute Auto 0 /uL (0-100); Basophils Percent Auto 0.5 % (0-2); Eosinophils Absolute Auto 100 /uL (0-450); Eosinophils Percent Auto 0.8 % (2-4); Hematocrit 37.5 % (36-46); Hemoglobin 12.7 g/dL (12.0-16.0); Lymphocytes Absolute Auto 1300 /uL (1100-4500); Lymphocytes Percent Auto 13.8 % (25-40); Mean Corpuscular Hemoglobin 31.6 PG (26-34); Mean Corpuscular Volume 92.9 fL (80-100); Monocytes Absolute Auto 500 /uL (0-900); Monocytes Percent Auto 5.9 % (3-14); Neutrophils Absolute Auto 7300 /uL (1500-7000); Platelet Count 271 X10^3/uL (150-400); Red Blood Cell Count 4.03 X10^6/uL (4.0-5.2); Red Cell Distribution Width 14.7 % (11.6-14.8); White Blood Cell Count 9.2 X10^3/uL (4.5-11.0)
[2024-01-23 11:19] LABS: Appearance Urine UA CLOUDY; Bilirubin Urine UA NEGATIVE (NEGATIVE); Color Urine UA YELLOW; Glucose Urine UA NEGATIVE (Negative); Ketones Urine UA NEGATIVE (NEGATIVE); Leukocyte Esterase Urine UA NEGATIVE (NEGATIVE); Nitrite Urine UA NEGATIVE (Negative); Occult Blood Urine UA NEGATIVE (Negative); Protein Urine UA NEGATIVE (Negative); Specific Gravity Urine UA 1.025 (1.000-1.035); Urobilinogen Urine UA 0.2 E.U./dL (0.2)
[2024-01-23 11:20] LABS: pH Urine UA 6.5 (4.5-8.0)
[2024-01-23 14:59] LABS: Hepatitis B Surface Antigen NEGATIVE s/c (NEGATIVE); Rubella Antibody IgG 10.1 IU/mL (>15)
[2024-01-23 15:16] LABS: HIV 1 & 2 Ab/Ag 4th Gen Combo NEGATIVE (NEGATIVE); Hep C Virus Ab w/Reflex Quant NEGATIVE s/c (NEGATIVE)
[2024-01-24 04:37] LABS: RPR Screen Non Reactive (Non Reactive)
[2024-01-24 10:38] LABS: Varicella IgG Antibody Reactive (Non Reactive)
== END ==
PROVIDERS: Referring Provider Family Medicine; Visit Provider Family Medicine
DX: Z34.82 Encounter for supervision of other normal pregnancy, second trimester (principal); Z3A.14 14 weeks gestation of pregnancy
CPT/HCPCS: 36415; 80055; 81003; 86787; 86803; 86850; 86900; 86901; 87389

== ENCOUNTER → 2024-02-17 11:50 | Outpatient (CLI) | payer OTHER, SELFPAY | PROVIDERS: Referring Provider Family Medicine; Visit Provider Family Medicine | DX: Z34.80 Encounter for supervision of other normal pregnancy, unspecified trimester (principal) | CPT/HCPCS: 36415; 82105; 82677; 84702; 86336 ==

== ENCOUNTER → 2024-02-19 14:59 | Outpatient (CLI) | payer OTHER, SELFPAY ==
--- NOTE | 2024-02-19 15:00 | DI.US.S_ITS ---
PROCEDURE: US OB >= 14 WEEKS FETUS INDICATIONS: anatomy OUTSIDE/PRIOR DATING DATA: Last menstrual period (LMP): 10/20/2023. LMP-based estimated date of delivery (JAYDA): 07/16/2024. First dating scan (date and location): Not applicable. Estimated date of delivery (JAYDA) from first dating scan: Not applicable. The calculations are made using the clinical JAYDA of 07/16/2024. TECHNIQUE: Real-time scanning was performed of the fetus, with image documentation and biometric measurements. Endovaginal scanning: No COMPARISON: [facility], OB >= 14 WEEKS FETUS, 08/21/2022, 15:10. FINDINGS: General: A single living intrauterine gestation is present. Presentation: Evenly transverse. Placenta: Placental position is anterior. Placental edge is 4.7 mm from the internal os Amniotic fluid index: 13.8 cm, normal range is 5-24 cm. Single deepest vertical pocket is 4.4 cm. heart rate: 130 beats per minute. Maternal cervical canal: 5.5 cm long. Normal lower limit is 2.5 cm. biometrics: Biparietal diameter: 4.2 cm, 18 week 5 day Head circumference: 15.1 cm, 18 week 1 day Abdominal circumference: 13.1 cm, 18 week 4 day Femur length: 2.6 cm, 18 week 0 day Clinically estimated gestational age: 18 week 6 day Composite gestational age from present scan: 18 week 3 day Estimated weight and percentile: 232 g, 16 percentile Anatomic survey: Neuro: Ventricles are non-dilated at less than 10 mm. Cisterna magna is normal at 3-11 mm. Cerebellum is normal in size and morphology. Nuchal skin fold: Normal at less than 6 mm between 14-21 weeks gestational age. Face: Nose and lips, facial profile are normal. Spine: No evidence for spina bifida. Heart: 4-chambered heart is present, with normal ventricular outflow tracts. Diaphragm: Diaphragm is intact. Stomach: Left-sided stomach is present. Kidneys: No hydronephrosis. Normal is less than 5 mm in 2nd trimester, less than 7 mm in 3rd trimester. Cord: 3-vessel cord has orthotopic insertion. Bladder: Normal in size. Extremities: All 4 extremities identified. IMPRESSION: Single live intrauterine consistent with 18 week 3 day gestation from current ultrasound. Marginal placenta previa 4.7 mm from the internal os Approved by: Celio Christianson M.D. on 02/19/2024 at 17:32
== END ==
LOC: US 14:59
PROVIDERS: Referring Provider Family Medicine; Visit Provider Family Medicine
DX: Z34.82 Encounter for supervision of other normal pregnancy, second trimester (principal); Z3A.18 18 weeks gestation of pregnancy
CPT/HCPCS: 76811

== ENCOUNTER → 2024-04-03 13:57 | Outpatient (CLI) | payer OTHER, SELFPAY ==
--- NOTE | 2024-04-03 13:57 | DI.US.S_ITS ---
PROCEDURE: US OB FOLLOW UP INDICATIONS: FOLLOW UP PLACENTA PREVIA OUTSIDE/PRIOR DATING DATA: Last menstrual period (LMP): 10/10/2023. LMP-based estimated date of delivery (JAYDA): 07/16/2024. TECHNIQUE: Real-time scanning was performed of the fetus, with image documentation. Endovaginal scanning: Not performed COMPARISON: [facility], OB FOLLOW UP, 11/22/2022, 9:04. [facility], OB >= 14 WEEKS FETUS, 02/19/2024, 15:25. FINDINGS: A single living intrauterine gestation is present. Presentation: Transverse Placenta: Placental position is anterior, without previa. Inferior edge of the placenta is 2.6 cm from the internal cervical os. Amniotic fluid index: 17.8 cm, normal range is 5-24 cm. Single deepest vertical pocket is 6.3 cm. heart rate: 128 beats per minute. Maternal cervical canal: 5.8 cm long. Normal lower limit is 2.5 cm. Clinically estimated gestational age: 24 weeks 4 days IMPRESSION: Single live intrauterine consistent with 24 weeks and 4 days. No evidence of low-lying placenta or placenta previa. Dictated by: Joaquin Chawla M.D. on 04/04/2024 at 15:55 Approved by: Joaquin Chawla M.D. on 04/04/2024 at 15:57
== END ==
PROVIDERS: Referring Provider Family Medicine; Visit Provider Family Medicine
DX: O44.00 Complete placenta previa NOS or without hemorrhage, unspecified trimester (principal); Z3A.24 24 weeks gestation of pregnancy
CPT/HCPCS: 76816

== ENCOUNTER → 2024-04-17 11:22 | Outpatient (CLI) | payer OTHER, SELFPAY ==
[2024-04-17 14:48] LABS: Add Manual Diff / Slide Review NO; Basophils Absolute Auto 0 /uL (0-100); Basophils Percent Auto 0.4 % (0-2); Eosinophils Absolute Auto 200 /uL (0-450); Eosinophils Percent Auto 1.8 % (2-4); Hematocrit 32.9 % (36-46); Hemoglobin 11.3 g/dL (12.0-16.0); Lymphocytes Absolute Auto 1600 /uL (1100-4500); Lymphocytes Percent Auto 17.3 % (25-40); Mean Corpuscular HGB Conc 34.2 % (30-36); Mean Corpuscular Hemoglobin 32.4 PG (26-34); Mean Corpuscular Volume 94.6 fL (80-100); Monocytes Absolute Auto 600 /uL (0-900); Monocytes Percent Auto 6.3 % (3-14); Neutrophils Absolute Auto 7000 /uL (1500-7000); Neutrophils Percent Auto 74.2 % (50-75); Platelet Count 248 X10^3/uL (150-400); Red Blood Cell Count 3.48 X10^6/uL (4.0-5.2); Red Cell Distribution Width 13.3 % (11.6-14.8); White Blood Cell Count 9.5 X10^3/uL (4.5-11.0)
[2024-04-17 15:24] LABS: GTT (PREG) 1 Hour PP 50gm Dose 140 mg/dL (76-139)
== END ==
PROVIDERS: Referring Provider Family Medicine; Visit Provider Family Medicine
DX: Z34.80 Encounter for supervision of other normal pregnancy, unspecified trimester (principal)
CPT/HCPCS: 36415; 82950; 85025

== ENCOUNTER → 2024-04-29 09:47 | Outpatient (CLI) | payer OTHER, SELFPAY ==
[2024-04-29 11:06] LABS: Glucose Fasting Gestational 85 mg/dL (76-95)
[2024-04-29 12:21] LABS: Glucose 1 Hour Gest 207 mg/dL (76-180)
[2024-04-29 12:38] LABS: Glucose 2 Hour Gest 158 mg/dL (76-155)
[2024-04-29 13:04] LABS: Glucose Tol Interp,Gestational INTERPRETATION
[2024-04-29 13:34] LABS: Glucose 3 Hour Gest 150 mg/dL (76-140)
== END ==
LOC: LAB 09:48
PROVIDERS: Referring Provider Family Medicine; Visit Provider Family Medicine
DX: O99.810 Abnormal glucose complicating pregnancy (principal)
CPT/HCPCS: 36415; 82951; 82952

== ENCOUNTER → 2024-06-22 11:14 | Outpatient (CLI) | payer OTHER, SELFPAY ==
[2024-06-23 10:59] LABS: Strep Grp B PCR NEG for Grp B Strep
== END ==
PROVIDERS: Referring Provider Family Medicine; Visit Provider Family Medicine
DX: Z34.80 Encounter for supervision of other normal pregnancy, unspecified trimester (principal)
CPT/HCPCS: 87653

== ENCOUNTER 2024-06-22 11:21 | Outpatient (CLI) | payer OTHER, SELFPAY ==
--- NOTE | 2024-06-22 12:16 | PM.OBTRLD ---
Visit Information Visit Information Date of evaluation: 06/22/24 Primary OB Provider: Yesica Hatch Comments/Additional reasons for admission: 29yo at 36w4d here for NST for borderline bradycardia in clinic. She is feeling baby moving regularly. [facility] Medical History (Updated 06/22/24 @ 12:20 by Yesica Hatch MD) Spontaneous vaginal delivery GI bleeding Normal colonoscopy Anorexia nervosa Anxiety Congenital heart defect History of abnormal cervical Pap smear Surgical History (Updated 11/20/23 @ 11:50 by Tess Mcdowell, RN) History of colposcopy with cervical biopsy (~2018) [place] teeth extracted History of removal of skin mole Family History (Updated 11/20/23 @ 11:54 by Tess Mcdowell, RN) Father Ulcerative colitis History of partial colectomy Skin cancer Family/Other Crohn's disease Grandmother Ovarian cancer Family/Other Apert syndrome Grandfather Hypertension Grandmother Skin cancer Breast cancer Grandfather Skin cancer Family/Other Breast cancer Grandfather Dementia Social History marital status: details: : Moiz number of children: 1 household members: spouse and children lives independently: Yes caregiver/support person: Yes housing: house pets and animals: Yes (3 dogs, fish; aware of precautions) education level: college (some college) occupational status: unemployed current occupational exposures/hazards: No (discussed precautions w/ animal feces and cleaning chemicals) special chester needs: No travel history: other (denies) seatbelt use: always water heater temp set < 120 deg: Yes (will adjust) working smoke detector in home: Yes fire extinguisher in home: No carbon monox detector in home: Yes firearms in home: Yes firearms unloaded and locked: Yes do you feel safe at home: Yes second hand exposure: No alcohol intake: former (rarely when not ) substance use type: marijuana (will not use when /) during the past year weight has: remained stable well-balanced diet: about half the time daily servings fruits/ve or more times/day caffeine: Yes (a cup of coffee daily ) eating out: rarely or never Type(s) of exercise: walking (10+ miles/day) and weight lifting frequency: daily duration: 45-60 minutes/day Evaluation Evaluation Baseline heart rate: 120 Variability: Moderate (11-25) monitor accelerations: Present Monitor Decelerations: Absent Category of Tracing: Reactive Diagnosis, Plan/Disposition Final Diagnosis (1) 36 weeks gestation of : Status: Acute (2) Encounter for supervision of other normal , unspecified trimester: Status: Acute Plan/Disposition Plan: 29yo at 36w4d here for NST for borderline bradycardia in clinic. NST reactive. Uterine irritability. Stable for d/c home. OB Disposition: home
== END 2024-06-22 12:13 | disposition home or self-care (01) ==
LOC: LABOR 11:36 → OB 15:01
PROVIDERS: Referring Provider Family Medicine; Visit Provider Family Medicine
DX: O36.8330 Maternal care for abnormalities of the fetal heart rate or rhythm, third trimester, not applicable or unspecified (principal); Z3A.36 36 weeks gestation of pregnancy
CPT/HCPCS: 59025; 87653; G0378; G0379

== ENCOUNTER 2024-06-24 10:32 | Outpatient (CLI) | payer OTHER, SELFPAY ==
--- NOTE | 2024-06-24 10:53 | P.TNLD_ITS ---
Visit Information Visit Information Date of evaluation: 06/24/24 Primary OB Provider: Yesica Hatch Comments/Additional reasons for admission: 29yo at 36w6d here for decreased movement. [facility] Medical History (Updated 06/22/24 @ 12:20 by Yesica Hatch MD) Spontaneous vaginal delivery GI bleeding Normal colonoscopy Anorexia nervosa Anxiety Congenital heart defect History of abnormal cervical Pap smear Surgical History (Updated 11/20/23 @ 11:50 by Tess Mcdowell, RN) History of colposcopy with cervical biopsy (~2018) [place] teeth extracted History of removal of skin mole Family History (Updated 11/20/23 @ 11:54 by Tess Mcdowell, RN) Father Ulcerative colitis History of partial colectomy Skin cancer Family/Other Crohn's disease Grandmother Ovarian cancer Family/Other Apert syndrome Grandfather Hypertension Grandmother Skin cancer Breast cancer Grandfather Skin cancer Family/Other Breast cancer Grandfather Dementia Social History marital status: details: : Moiz number of children: 1 household members: spouse and children lives independently: Yes caregiver/support person: Yes housing: house pets and animals: Yes (3 dogs, fish; aware of precautions) education level: college (some college) occupational status: unemployed current occupational exposures/hazards: No (discussed precautions w/ animal feces and cleaning chemicals) special chester needs: No travel history: other (denies) seatbelt use: always water heater temp set < 120 deg: Yes (will adjust) working smoke detector in home: Yes fire extinguisher in home: No carbon monox detector in home: Yes firearms in home: Yes firearms unloaded and locked: Yes do you feel safe at home: Yes second hand exposure: No alcohol intake: former (rarely when not ) substance use type: marijuana (will not use when /) during the past year weight has: remained stable well-balanced diet: about half the time daily servings fruits/ve or more times/day caffeine: Yes (a cup of coffee daily ) eating out: rarely or never Type(s) of exercise: walking (10+ miles/day) and weight lifting frequency: daily duration: 45-60 minutes/day Evaluation Evaluation Baseline heart rate: 130 Variability: Moderate (11-25) monitor accelerations: Present Monitor Decelerations: Absent Category of Tracing: Reactive Diagnosis, Plan/Disposition Plan/Disposition Plan: 29yo at 36w6d here for decreased movement. Pt now feeling baby move. Reactive NST. Stable for d/c home. OB Disposition: home
== END 2024-06-24 11:17 | disposition home or self-care (01) ==
LOC: LABOR 10:44 → OB 12:16
PROVIDERS: Referring Provider Family Medicine; Visit Provider Family Medicine
DX: O36.8130 Decreased fetal movements, third trimester, not applicable or unspecified (principal); Z3A.36 36 weeks gestation of pregnancy
CPT/HCPCS: 59025; G0378; G0379

== ENCOUNTER 2024-07-02 01:44 | Observation (INO) | payer OTHER, SELFPAY | END 2024-07-02 03:57 | disposition home or self-care (01) | LOC: LABOR 01:46 | PROVIDERS: Admitting Provider Obstetrics & Gynecology; Referring Provider Obstetrics & Gynecology; Visit Provider Obstetrics & Gynecology | DX: Z36.9 Encounter for antenatal screening, unspecified (principal) | CPT/HCPCS: 59025; 59050; G0378; G0379 ==

== ENCOUNTER 2024-07-06 03:00 | Inpatient (IN) | payer OTHER, SELFPAY ==
[2024-07-06] MEDS: LACTATED RINGERS 1,000 ML 999 ML IV ×3 (03:20→09:31)
--- NOTE | 2024-07-06 04:05 | P.HPOB_ITS ---
OB HPI Date/Time Date of admission: 07/06/24 Date Patient Seen: 07/06/24 Time Patient Seen: 04:05 History of Present Condition Chief complaint: labor JAYDA Calculator 2 Estimated Delivery Date Method Current WG Current Estimate 07/16/24 LMP (Uncertain) 38w 4d Other Estimates 07/18/24 Ultrasound #1 38w 2d Estimated Gestational Age (weeks): 38w4d : 2 Para: 1 Narrative: Pt is a 29yo at 38w4d here with regular contractions. Pt reports contractions starting last night more intensely, but she has been elisabeth for several days. Mild vaginal bleeding immediately prior to arrival. No LOF. She is feeling her baby move regularly. complicated by GDMA1 with excellent blood sugar control. Also anxiety/depression, stable on Zoloft. care: good care, initiated at week # (7) and pounds weight gain (31) Dating criteria OB: LMP confirmed by 1st trimester US Ultrasounds: normal 1st trimester US and normal mid trimester US Obstetrical complications: none Medical complications OB: none Preadmission Labs Last OB Lab Results: 2 Blood Type O Positive 07/06/24 03:20 Antibody Screen Negative 07/06/24 03:20 Hct 35.2 % (36-46) L 07/06/24 03:20 Hgb 12.3 g/dL (12.0-16.0) 07/06/24 03:20 Hep Bs Antigen Negative s/c (NEGATIVE) 01/23/24 10:00 Hepatitis C Antibody Negative s/c (NEGATIVE) 01/23/24 10:00 Rubella Antibody 10.1 IU/mL (>15) L 01/23/24 10:00 VZV IgG Antibody Reactive (Non Reactive) 01/23/24 10:00 Glucose 1 Hr 50 gm 140 mg/dL (76-139) H 04/17/24 11:49 Group B Strep (PCR) Neg for grp b strep 06/22/24 11:14 Glucose Tolerance Testing: Fasting (85), 1 hr (207), 2 hr (158) and 3 hr (150) -: Urine: positive (Lactobacillus) Genetic Screens: Quad screen: Normal External Labs -: Urine: positive (Lactobacillus) Prior (ies) Past Pregnancies Del. Date GA/Weeks Labor Lgth Wt Sex Route Outcome Anesthesia Place Delv Breastfeed Preg Comp Name 12/26/22 38 10 6 lb 12 oz Female vaginal live - full term e pidural IH 7 months, pumped other [place] Delivery Date: 12/26/22 Last Updated by: Tess Mcdowell RN epidural didn't work great. Had some heavier than normal bleeding that resolved with clot expression and TSA. Not classified as a hemmorhage Evaluation Evaluation Baseline heart rate: 120 Variability: Moderate (11-25) monitor accelerations: Present Monitor Decelerations: Absent Contraction Frequency (minutes): 2 Status: Category l Dilation (cm): 8 Effacement (%): 80 station: -3 Comments: AROM performed with cervical exam incidentally with thin meconium present. [facility] Medical History (Updated 06/29/24 @ 12:46 by Yesica Hatch MD) Spontaneous vaginal delivery GI bleeding Normal colonoscopy Anorexia nervosa Anxiety Congenital heart defect History of abnormal cervical Pap smear Surgical History (Updated 11/20/23 @ 11:50 by Tess Mcdowell, RN) History of colposcopy with cervical biopsy (~2017) [place] teeth extracted History of removal of skin mole Family History (Updated 11/20/23 @ 11:54 by Tess Mcdowell, RN) Father Ulcerative colitis History of partial colectomy Skin cancer Family/Other Crohn's disease Grandmother Ovarian cancer Family/Other Apert syndrome Grandfather Hypertension Grandmother Skin cancer Breast cancer Grandfather Skin cancer Family/Other Breast cancer Grandfather Dementia Social History marital status: details: : Moiz number of children: 1 household members: spouse and children lives independently: Yes caregiver/support person: Yes housing: house pets and animals: Yes (3 dogs, fish; aware of precautions) education level: college (some college) occupational status: unemployed current occupational exposures/hazards: No (discussed precautions w/ animal feces and cleaning chemicals) special chester needs: No travel history: other (denies) seatbelt use: always water heater temp set < 120 deg: Yes (will adjust) working smoke detector in home: Yes fire extinguisher in home: No carbon monox detector in home: Yes firearms in home: Yes firearms unloaded and locked: Yes do you feel safe at home: Yes second hand exposure: No alcohol intake: former (rarely when not ) substance use type: marijuana (will not use when /) during the past year weight has: remained stable well-balanced diet: about half the time daily servings fruits/ve or more times/day caffeine: Yes (a cup of coffee daily ) eating out: rarely or never Type(s) of exercise: walking (10+ miles/day) and weight lifting frequency: daily duration: 45-60 minutes/day Meds Home Medications and Allergies Home Medications Medication Instructions Recorded Confirmed Type magnesium 250 mg tablet 250 mg PO DAILY 05/08/22 07/06/24 History prenat.vits,pete,[id number] 1 tab PO DAILY 05/08/22 07/06/24 History sertraline 100 mg tablet (Zoloft) 100 mg PO DAILY 05/08/22 07/06/24 History blood sugar diagnostic (FreeStyle #100 05/01/24 07/06/24 Rx Test strips) blood-glucose meter (FreeStyle #1 ea 05/01/24 07/06/24 Rx Flash System kit) lancets 28 gauge (FreeStyle #100 05/01/24 07/06/24 Rx Lancets) Double Electric Breast Pump and #1 ea 06/15/24 07/06/24 Rx Supplies albuterol sulfate 90 mcg/actuation 2 puff inhalation DIRECTED 06/15/24 07/06/24 History aerosol inhaler Allergies Allergy/AdvReac Type Severity Reaction Status Date / Time No Known Drug Allergies Allergy Unverified 06/29/24 11:04 OB Exam Resp Effort & Inspection: normal respiratory effort Auscultation: clear to auscultation bilaterally Cardio Rate: regular rate Rhythm: regular rhythm Heart Sounds: S1 normal, S2 normal and no murmurs GI Inspection: non-distended Palpation: Yes soft and No tender Presentation: vertex Objective Labs 07/06/24 03:20 Assessment and Plan Assessment and Plan Assessment and Plan narrative: Pt is a 29yo at 38w4d here in active labor. GBS negative, Rh positive. - Expectant management, anticipate - FHT reassuring - GBS negative, no prophylaxis indicated - Epidural for pain control now Time-Based Coding :: [TOTAL MINUTES] spent with patient and on the chart (including review of chart, obtaining history, exam, reviewing outside data, placing orders, documenting exam and treatment plan, and counseling patient) on [DATE].
[2024-07-06 04:06] LABS: Add Manual Diff / Slide Review NO; Basophils Absolute Auto 100 /uL (0-100); Basophils Percent Auto 0.6 % (0-2); Eosinophils Absolute Auto 200 /uL (0-450); Eosinophils Percent Auto 2.4 % (2-4); Hematocrit 35.2 % (36-46); Hemoglobin 12.3 g/dL (12.0-16.0); Lymphocytes Absolute Auto 2400 /uL (1100-4500); Lymphocytes Percent Auto 23.1 % (25-40); Mean Corpuscular Hemoglobin 32.3 PG (26-34); Mean Corpuscular Volume 92.2 fL (80-100); Monocytes Absolute Auto 800 /uL (0-900); Monocytes Percent Auto 7.5 % (3-14); Neutrophils Absolute Auto 7000 /uL (1500-7000); Neutrophils Percent Auto 66.4 % (50-75); Platelet Count 201 X10^3/uL (150-400); Red Blood Cell Count 3.81 X10^6/uL (4.0-5.2); Red Cell Distribution Width 13.8 % (11.6-14.8); White Blood Cell Count 10.5 X10^3/uL (4.5-11.0)
[2024-07-06] MEDS: FENT 2MCG/ML BUPIV 0.125% EPI 200 MCG/100 ML PLAST..BAG 10 MCG EPIDURAL (04:11)
--- NOTE | 2024-07-06 04:40 | PM.AN.REGBLK ---
[facility] <Alexandrea Louise, JEWELL - Last Filed: 07/06/24 04:47> Pre-procedure Procedure: Continuous Lumbar Epidural for L&D Attending OB provider: Miranda Starks PMH/ROS narrative: , spontaneous labor, unruptured, 8cm requests epidural. Had epidural with previous delivery that was one-sided. ROS positive for asthma, GERD, depression, gestational diabetes, otherwise negative. PSH/Anesthesia history narrative: Negative Exam narrative: Mall 2, good dentition ASA Class: II Labs: Hct 35.2 % (36-46) L 07/06/24 03:20 Plt Count 201 X10^3/uL (150-400) 07/06/24 03:20 Medications: Current Medications Generic Name Dose Route Start Last Admin Trade Name Freq PRN Reason Stop Dose Admin Calcium Carbonate 1,000 mg 07/06/24 03:20 Calcium Carbonate 500 Mg Tab PO Q2HR PRN Dyspepsia Carboprost Tromethamine 250 mcg 07/06/24 03:20 Carboprost 250 Mcg/Ml Ampul IM Q90M PRN Bleeding Diphenhydramine HCl 25 mg 07/06/24 04:38 Diphenhydramine 50 Mg/Ml Vial IV Q10M PRN Pruritis Ephedrine Sulfate 10 mg 07/06/24 04:38 Ephedrine 50 Mg/Ml Vial IV Q5M PRN Blood pressure decrease more than 20% of baseline. Oxytocin/Lactated Ringer's 30 unit in 500 mls @ 200 mls/hr 07/06/24 03:20 Oxytocin Premix IV CONT PRN Bleeding Protocol Tranexamic Acid 1,000 mg/ 100 mls @ 600 mls/hr 07/06/24 03:20 Sodium Chloride IV NOW PRN Bleeding Lactated Ringer's 1,000 mls @ 100 mls/hr 07/06/24 03:30 07/06/24 04:09 Lactated Ringers IV 07/06/24 13:29 999 mls/hr CONT WES Administration FENT 2MCG/ML BUPIV 0.125% EPI 200 mcg in 100 mls @ 10 mls/hr 07/06/24 04:45 Fentanyl/Bupiv/Ns 2mcg/Ml - 0.125% EPIDURAL CONT WES Lidocaine HCl 20 ml 07/06/24 03:20 Lidocaine 1% 20 Ml INJ INTRA-OP PRN Post Delivery Methylergonovine Maleate 0.2 mg 07/06/24 03:20 Methylergonovine 0.2 Mg Tablet PO Q6HR PRN Heavy Bleeding Methylergonovine Maleate 0.2 mg 07/06/24 03:20 Methylergonovine 0.2 Mg/Ml Vial IM NOW PRN Bleeding Mineral Oil 30 ml 07/06/24 03:20 Mineral Oil 30 Ml Udc TOP PRN PRN Version Misoprostol 800 mcg 07/06/24 03:20 Misoprostol 200 Mcg Tablet UT NOW PRN Bleeding Misoprostol 400 mcg 07/06/24 03:20 Misoprostol 200 Mcg Tablet SL NOW PRN Bleeding Nalbuphine HCl 2.5 mg 07/06/24 04:38 Nalbuphine 20 Mg/Ml Ampul IV Q10M PRN Pruritis Naloxone HCl 0.2 mg 07/06/24 03:20 Naloxone 0.4 Mg/Ml Vial IV Q2MIN PRN Opiate Reversal Ondansetron HCl 4 mg 07/06/24 03:20 Ondansetron 4 Mg/2 Ml Inj IV Q4HR PRN Nausea And Vomiting Oxytocin 10 unit 07/06/24 03:20 Oxytocin 10 Unit/Ml Vial IM NOW PRN Bleeding Allergies: Allergies Allergy/AdvReac Type Severity Reaction Status Date / Time No Known Drug Allergies Allergy Unverified 06/29/24 11:04 Procedure Insertion date: 07/06/24 Insertion time: 04:00 Prep/Local: 1% lidocaine (chlorhex skin prep, dry x 3 min) Interspace: L4-5 Patient position: sitting Needle: 17 gauge Tuohy Loss of resistance with: saline JORGE LUIS at (cm): 7 Catheter placed at SKIN (cm): 13 Catheter in SPACE (cm): 6 Sensory level: T10 Insertion: No CSF, No Blood, No Paresthesia with insertion, No Paresthesia with injection and No Test dose reaction Initial Medications TEST DOSE time: 04:16 BOLUS DOSE time: 04:11 BOLUS DOSE (mL): 1 BOLUS DOSE med: other (introducer, 25G spinal ndl, Neg heme/pares, pos csf a/p injection of 1/3cc 0.75% bupiv, 2/3cc saline as separate procedure) Infusion INFUSION: 0.125% bupivacaine and with fentanyl 2 mcg/mL Initial rate (mL/hr): 10 Post-procedure Anesthesia date START: 07/06/24 Anesthesia time START: 04:00 <Jil Oquendo CRNA - Last Filed: 07/06/24 15:02> Post-procedure Anesthesia date END: 07/06/24 Anesthesia time END: 09:00 Post-procedure Anesthesia Assessment: Yes CV function: HR/BP stable, Yes Resp function: RR/sat/airway adequate, Yes Post-op hydration adequate, Yes Pain control adequate, Yes Nausea & vomiting absent, Yes Temperature > 36 C and Yes Mental status appropriate
[2024-07-06] MEDS: OXYTOCIN PREMIX 30 UNIT/500 ML PLAST..BAG 200 UNIT IV (08:50)
[2024-07-06] MEDS: LIDOCAINE 1% 20 ML INJ (08:57)
[2024-07-06] MEDS: TRANEXAMIC ACID 1,000 MG in SODIUM CHLORIDE 0.9% 100 ML 600 MG IV (09:17)
--- NOTE | 2024-07-06 09:54 | PM.OBPRVD ---
Labor & Delivery Delivery date: 07/06/24 Delivery Time: 08:46 Cervical ripening method: none Induction method: none Delivery augmentation: rupture of membranes Delivery monitor: external FHT and external uterine Route of delivery: Episiotomy description: None L&D Laceration Description: Perineal - 2nd Degree Quantitative Blood Loss: 100 Anesthesia Type: Epidural Complications: hemorrhage Narrative: PROCEDURE: at 38w4d presented in active labor and was admitted to Labor and Delivery. The patient progressed through the 1st stage over 14 hours. AROM occured at 4:35 with meconium-stained fluid. Pain was controlled with an epidural. The patient progressed through the 2nd stage over 29 minutes and delivered a viable female with APGARs 6/7/8 at 8:46 via . The cord was cut and clamped after 1 minute due to HR in the 80s, and baby was transferred to the warmer. The placenta delivered with gentle cord traction, and appeared complete. The perineum and vagina were inspected with 2nd degree laceration repaired with 2-O Vicryl in the usual fashion. After repair, fundal massage found the uterus to the right side of the pts body, and high but firm. Straight catheter produced minimal urine. Multiple sweeps of the uterus removed many large clots. Bimanual massage was then briefly utilized to improve fundal tone. The pt received the usual pitocin in bolus, as well as TXA. Her bleeding was then appropriate. Needle and sponge counts were correct.? The vagina was inspected and no items were left in situ. [place] was doing well with Ab, her and , Moiz, at bedside. PREPROCEDURE DIAGNOSIS: Intrauterine at 38w4d GBS negative RH positive GDMA1 POSTPROCEDURE DIAGNOSIS: Intrauterine at 38w4d, delivered Same as preprocedure hemorrhage Baby 1: gender: Female Presentation: vertex Position: Left Occiput Anterior Placenta delivery description: Spontaneous Cord Vessel Description: 3 Vessels score (1 min): 6 score (5 min): 7 score (10 min): 8 weight: 6 lb 13.526 oz Plan for aftercare: Routine care
[2024-07-06] MEDS: WITCH HAZEL/GLYCERIN PADS 1 EACH TOP (10:17)
[2024-07-06] MEDS: IBUPROFEN 600 MG TABLET PO ×3 (10:18→22:47)
[2024-07-06] MEDS: ACETAMINOPHEN 325 MG TABLET 650 MG PO ×3 (10:18→22:45)
[2024-07-06] MEDS: LANOLIN OINT 7 GM 1 APPLIC TOP (10:18)
[2024-07-06] MEDS: DERMOPLAST SPRAY 20% 60 ML 1 SPRAY TOP (10:18)
[2024-07-07 05:52] LABS: Add Manual Diff / Slide Review NO; Basophils Absolute Auto 100 /uL (0-100); Basophils Percent Auto 0.7 % (0-2); Eosinophils Absolute Auto 300 /uL (0-450); Eosinophils Percent Auto 2.2 % (2-4); Hematocrit 27.7 % (36-46); Hemoglobin 9.5 g/dL (12.0-16.0); Lymphocytes Absolute Auto 2600 /uL (1100-4500); Lymphocytes Percent Auto 21.8 % (25-40); Mean Corpuscular HGB Conc 34.1 % (30-36); Mean Corpuscular Hemoglobin 31.7 PG (26-34); Mean Corpuscular Volume 92.8 fL (80-100); Monocytes Absolute Auto 700 /uL (0-900); Monocytes Percent Auto 6.3 % (3-14); Neutrophils Absolute Auto 8200 /uL (1500-7000); Platelet Count 185 X10^3/uL (150-400); Red Blood Cell Count 2.99 X10^6/uL (4.0-5.2); Red Cell Distribution Width 13.6 % (11.6-14.8); White Blood Cell Count 11.8 X10^3/uL (4.5-11.0)
[2024-07-07] MEDS: ACETAMINOPHEN 325 MG TABLET 650 MG PO (05:53)
[2024-07-07] MEDS: IBUPROFEN 600 MG TABLET PO (05:54)
--- NOTE | 2024-07-07 08:54 | P.DS_ITS ---
Discharge Providers Provider Date of admission: 07/06/24 03:00 Discharge Date: 07/07/24 Primary care physician: Lashell MARQUES Provider Consults: 07/06/24 03:20 Consult to Anesthesiology Urgent Comment: Consulting Provider: Anesthesiologist Reason for consultation: Epidural 07/07/24 09:52 Consult to Berry Planter Routine Comment: Discharge provider: Yesica Hatch MD Summary Hospital Course Date Patient Seen: 07/07/24 Diagnoses: Intrauterine at 38w4d GBS negative RH positive GDMA1 hemorrhage due to uterine atony Hospital Course: The pt presented in active labor. She received an epidural for pain control. AROM with meconium-stained fluid present. She progressed to complete dilation and had an of a viable baby girl. A 2nd degree laceration was then repaired. The pts fundus was noted to be high and to one side in her abdomen, and manual sweep was completed with significant clot produced. Brief bimanual massage, pitocin, and TXA were used to control bleeding, and the pts fundus was then firm. , there were no additional complications. At the time of discharge she was voiding, ambulating, and passing flatus without difficulty. Her lochia was decreasing appropriately. Her pain was well controlled. She was with good latch. She will f/u in 6 weeks for check. Peripartum Data Infant Delivery Method: Natural Vaginal Laceration Description: Perineal - 2nd Degree Episiotomy description: None Procedures: Spontaneous vaginal delivery complications: uterine atony [place] 1: Gender: Female Disposition of : home Time Spent with Patient Time attestation: Total time spent providing and/or coordinating discharge services: Objective Labs 07/07/24 05:44 Labs: Laboratory Results - last 24 hr 07/07/24 05:44 WBC 11.8 H RBC 2.99 L Hgb 9.5 L Hct 27.7 L MCV 92.8 MCH 31.7 MCHC 34.1 RDW 13.6 Plt Count 185 Neut % (Auto) 69.0 Lymph % (Auto) 21.8 L [place] % (Auto) 6.3 Eos % (Auto) 2.2 Baso % (Auto) 0.7 Neut # (Auto) 8200 H Lymph # (Auto) 2600 [place] # (Auto) 700 Eos # (Auto) 300 Baso # (Auto) 100 Exam Narrative Exam Narrative: Gen: NAD, sitting comfortably in bed, appears well CV: RRR, no murmurs Resp: clear to auscultation bilaterally Abd: soft, appropriately tender, fundus firm and below the umbilicus, nondistended Ext: no edema Discharge Plan Discharge Plan Patient Disposition: Home Discharge orders & Medications Prescriptions: New acetaminophen 325 mg Tablet 650 mg PO Q6HR PRN (Reason: Pain, Mild (1-3)) Qty: 30 0RF ferrous sulfate 325 mg (65 mg iron) Tablet 325 mg PO DAILY Qty: 30 0RF docusate sodium 100 mg Capsule 100 mg PO DAILY Qty: 30 0RF ibuprofen 600 mg Tablet 600 mg PO Q6HR PRN (Reason: Pain, Mild (1-3)) Qty: 60 0RF Continued albuterol sulfate 90 mcg/actuation HFA aerosol inhaler 2 puff inhalation DIRECTED (DME) Double Electric Breast Pump and Supplies See Rx Instructions .ROUTE .MEDSUPPLY Qty: 1 0RF Rx Instructions: As directed prenat.vits,pete,[id number] Tablet 1 tab PO DAILY sertraline [Zoloft] 100 mg tablet 100 mg PO DAILY magnesium 250 mg tablet 250 mg PO DAILY Discontinued (DME) blood-glucose meter [FreeStyle Flash System] Kit See Rx Instructions .Route Qty: 1 0RF Rx Instructions: Check blood sugars fasting and 2 hours after eating. Bring log to OB visits. (DME) lancets [FreeStyle Lancets] 28 gauge misc See Rx Instructions .Route Qty: 100 6RF Rx Instructions: Check blood sugars fasting and two hours after meals (DME) FreeStyle Test Strip See Rx Instructions .Route Qty: 100 6RF Rx Instructions: Check blood sugars fasting and 2 hours after meals. Follow up/Referrals: ProviderLashell [Primary Care Provider] - Yesica Hatch MD [Physician] - 6 Weeks Diet/Activity/Treatments Diet: Diet as Tolerated and Regular Skin/Wound/Dressing Care Report to your healthcare provider any signs of infection, such as:: chills, fever, increased pain and unusual drainage Visit Report/Discharge Packet Instructions: DI for Labor and Delivery, Vaginal Stand Alone Forms: Patient Portal/API, Stroke Signs & Symptoms Discharge Data Primary Care Provider: ProviderLashell
[2024-07-07] MEDS: WITCH HAZEL/GLYCERIN PADS 1 EACH TOP (09:26)
[2024-07-07] MEDS: PRENATAL VIT,CALC/IRON/FOLIC 1 TABLET 1 TAB PO (09:26)
[2024-07-07] MEDS: DOCUSATE 100 MG CAPSULE PO (09:26)
[2024-07-07] MEDS: MEASLES,MUMPS,RUBELLA VACC/PF 0.5 ML VIAL SUBCUT (12:47)
[2024-07-07 13:25] VITALS: BP 110/89; PULSE 78; RESP 16; TEMP 36.8
== END 2024-07-07 13:27 | disposition home or self-care (01) | DRG 806 ==
PROVIDERS: Family Medicine; Admitting Provider Family Medicine; Referring Provider Family Medicine; Visit Provider Family Medicine
DX: O70.1 Second degree perineal laceration during delivery (principal); O72.1 Other immediate postpartum hemorrhage; Z37.0 Single live birth; Z3A.38 38 weeks gestation of pregnancy; O24.429 Gestational diabetes mellitus in childbirth, unspecified control; O99.52 Diseases of the respiratory system complicating childbirth; J45.909 Unspecified asthma, uncomplicated; O99.62 Diseases of the digestive system complicating childbirth; K21.9 Gastro-esophageal reflux disease without esophagitis; O99.344 Other mental disorders complicating childbirth; F32.A Depression, unspecified
CPT/HCPCS: 36415; 59050; 85025; 86850; 86900; 86901; G0379; J2590